=== PATIENT | female | born 1955 | race African-American/Black ===

== ENCOUNTER 2017-08-10 11:07 | Inpatient (IN) | payer BC ==
[2017-08-10 12:17] VITALS: BMI 17.0
--- NOTE | 2017-08-10 14:13 | HP ---
CIWA Score - CIWA Score Nausea/Vomitin-Mild Nausea/No Vomiting Muscle Tremors: 3 Anxiety: 4-Mod. Anxious/Guarded Agitation: 4-Moderately Restless Paroxysmal Sweats: No Perspiration Orientation: 0-Oriented Tacttile Disturbances: 2-Mild Itch/Numbness/Burn Auditory Disturbances: 0-None Visual Disturbances: 0-None Headache: 0-None Present CIWA-Ar Total Score: 14 Admission ROS BHS - HPI Chief Complaint: Withdrawal sx. Allergies/Adverse Reactions: Allergies Allergy/AdvReac Type Severity Reaction Status Date / Time atenolol Allergy Severe Hives Verified 08/10/17 12:16 History of Present Illness: 62 y/o woman with a long hx. of alcoholism is admitted for detox. Pt. has been in previous detox,denies significant sobriety. Pt. has hx. of Graves' disease treated with radioactive Iodine ablation,now takes synthroid. Exam Limitations: No Limitations - Ebola screening Have you traveled outside of the country in the last 21 days: No Have you had contact with anyone from an Ebola affected area: No Have you been sick,other than usual withdrawal symptoms: No Do you have a fever: No - Review of Systems Constitutional: Diaphoresis EENT: reports: No Symptoms Reported Respiratory: reports: Shortness of Breath (from smoking cigarettes & crack cocaine) GI: reports: Nausea, Abdominal cramping : reports: No Symptoms Reported Musculoskeletal: reports: Back Pain, Joint Pain, Muscle Pain Integumentary: reports: Sweating Neuro: reports: Tingling, Tremors Endocrine: reports: No Symptoms Reported Hematology: reports: No Symptoms Reported Psychiatric: reports: No Sypmtoms Reported Other Systems: Reviewed and Negative Patient History - Patient Medical History Hx Anemia: No Hx Asthma: No Hx Chronic Obstructive Pulmonary Disease (COPD): No (? early) Hx Cancer: No Hx Cardiac Disorders: No Hx Congestive Heart Failure: No Hx Hypertension: No Hx Hypercholesterolemia: No Hx Pacemaker: No HX Cerebrovascular Accident: No Hx Seizures: No Hx Dementia: Yes (alcohol related memory loss) Hx Diabetes: No Hx Gastrointestinal Disorders: No Hx Liver Disease: Yes (Cirrhosis) Hx Genitourinary Disorders: No Hx Sexually Transmitted Disorders: No Hx Renal Disease (ESRD): No Hx Thyroid Disease: Yes (Graves' disease now Hypothyroidism) Hx Human Immunodeficiency Virus (HIV): No Hx Hepatitis C: Yes (Needs treatment) Hx Depression: Yes Hx Suicide Attempt: No Hx Bipolar Disorder: No Hx Schizophrenia: No - Patient Surgical History Past Surgical History: Yes Hx Neurologic Surgery: No Hx Cataract Extraction: No Hx Cardiac Surgery: No Hx Lung Surgery: No Hx Breast Surgery: No Hx Breast Biopsy: No Hx Abdominal Surgery: Yes (umbilical hernia repair) Hx Appendectomy: No Hx Cholecystectomy: No Hx Genitourinary Surgery: No Hx Section: No Hx Orthopedic Surgery: Yes Other Surgical History: RT ANKLE SX Anesthesia Reaction: No - PPD History Previous Implant?: Yes Documented Results: Positive w/o proof PPD to be Administered?: No - Reproductive History Patient is a Female of Child Bearing Age (11 -55 yrs old): No Patient : No - Smoking Cessation Smoking history: Current every day smoker Have you smoked in the past 12 months: Yes Aproximately how many cigarettes per day: 10 Hx Chewing Tobacco Use: No Initiated information on smoking cessation: Yes 'Breaking Loose' booklet given: 08/10/17 - Substance & Tx. History Hx Alcohol Use: Yes Hx Substance Use: Yes Substance Use Type: Alcohol, Cocaine Hx Substance Use Treatment: Yes (can't remember when or where this yr.) - Substances Abused Alcohol Route: Oral Frequency: Daily Amount used: BEER- 1(6 pack) Age of first use: 17 Date of Last Use: 08/07/17 Cocaine Route: Smoking Frequency: Daily Amount used: 4 BAGS Age of first use: 26 Date of Last Use: 08/07/17 Family Disease History - Family Disease History Family Disease History: Diabetes: Grandparent, Heart Disease: Mother (HTN), CA: Father Admission Physical Exam S - Vital Signs Vital Signs: Vital Signs - 24 hr 08/10/17 12:05 Temperature 96.4 F L Pulse Rate 77 Respiratory 20 Rate Blood Pressure 121/80 - Physical General Appearance: Yes: Tremorous, Irritable, Sweating, Anxious HEENTM: Yes: Rhinorrhea, Other (rt. upper eyelid with lipoma-like mass) Respiratory: Yes: Chest Non-Tender, Lungs Clear, Normal Breath Sounds Neck: Yes: Supple Breast: Yes: Breast Exam Deferred Cardiology: Yes: Regular Rhythm, Regular Rate, S1, S2 Abdominal: Yes: Normal Bowel Sounds, Non Tender, Soft Genitourinary: Yes: Within Normal Limits Back: Yes: Within Normal Limits Musculoskeletal: Yes: Within Normal Limits Extremities: Yes: Tremors Neurological: Yes: Fully Oriented, Alert Integumentary: Yes: Diaphoresis Lymphatic: Yes: Within Normal Limits - Diagnostic (1) Alcohol dependence with uncomplicated withdrawal Current Visit: Yes Status: Acute (2) Cirrhosis of liver Current Visit: Yes Status: Acute Qualifiers: Hepatic cirrhosis type: alcoholic cirrhosis Ascites presence: without ascites Qualified Code(s): K70.30 - Alcoholic cirrhosis of liver without ascites (3) Cocaine dependence, uncomplicated Current Visit: Yes Status: Acute (4) Graves' disease Current Visit: Yes Status: Acute Cleared for Admission [facility] - Detox or Rehab [facility] Level of Care: Medically Managed Detox Regimen/Protocol: Librium [facility] Breath Alcohol Content Breath Alcohol Content: 0 Urine Pregancy Test - Result Urine Test Results: Negative- NO Line Present Urine Drug Screen - Results Drug Screen Negative: No Urine Drug Screen Results: NATHALY-Cocaine, BZO-Benzodiazepines
[2017-08-10] MEDS ORDERED: LOPERAMIDE HCL 2 MG CAPSULE PO PRN (14:25)
[2017-08-10] MEDS ORDERED: chlordiazePOXIDE HCL 25 MG CAPSULE PO PRN (14:25)
[2017-08-10] MEDS ORDERED: NICOTINE POLACRILEX 2 MG GUM BUC PRN (14:25)
[2017-08-10] MEDS ORDERED: chlordiazePOXIDE HCL 25 MG CAPSULE PO ONE (14:25)
[2017-08-10] MEDS ORDERED: hydrOXYzine PAMOATE 50 MG CAPSULE (FP) PO PRN (14:25)
[2017-08-10] MEDS ORDERED: diphenhydrAMINE HCL 50 MG CAPSULE PO PRN (14:25)
[2017-08-10] MEDS ORDERED: MAGNESIUM HYDROX 2400MG/30ML ORAL SUSPENSION 30 ML CUP PO PRN (14:25)
[2017-08-10] MEDS ORDERED: P-EPHED 60MG/TRIPROLIDI 2.5MG TABLET PO PRN (14:25)
[2017-08-10] MEDS ORDERED: MAGNESIUM CITRATE 300 ML BOTTLE PO PRN (14:25)
[2017-08-10] MEDS ORDERED: guaiFENesin/D-METHORPHAN HB 10 ML UNIT-DOSE CUPS PO PRN (14:25)
[2017-08-10] MEDS ORDERED: MENTHOL/PHENOL 1 EACH UD MM PRN (14:25)
[2017-08-10] MEDS ORDERED: MAG HYDROX/AL HYDROX/SIMETH 30 ML UNIT-DOSE CUP PO PRN (14:25)
[2017-08-10] MEDS: LEVOTHYROXINE NA 25 MCG TABLET (FP) PO SCH (14:51)
[2017-08-10] MEDS: IBUPROFEN 400 MG TABLET (FP) PO PRN (14:54)
[2017-08-10] MEDS: NICOTINE 21 MG/24 HOURS TOPICAL PATCH TD SCH (14:55)
[2017-08-10] MEDS: chlordiazePOXIDE HCL 25 MG CAPSULE PO SCH ×2 (17:48→22:20)
[2017-08-10 18:14] LABS: URINE APPEARANCE SLCLOUDY; URINE BILIRUBIN NEGATIVE (NEGATIVE); URINE BLOOD NEGATIVE (NEGATIVE); URINE COLOR LTYELLOW; URINE GLUCOSE (UA) NEGATIVE (NEGATIVE); URINE KETONE NEGATIVE (NEGATIVE); URINE NITRITE NEGATIVE (NEGATIVE); URINE PROTEIN NEGATIVE (NEGATIVE); URINE UROBILINOGEN NEGATIVE mg/dL (0.2-1.0)
[2017-08-10 18:26] LABS: URINE LEUK ESTERASE 3+ (NEGATIVE)
[2017-08-10 18:31] LABS: URINE MUCUS RARE; URINE RBC 27 /hpf (0-3); URINE WBC 41 /hpf (3-5)
[2017-08-10] MEDS: THIAMINE HCL 100 MG TABLET (FP) PO SCH (22:19)
[2017-08-11] MEDS: chlordiazePOXIDE HCL 25 MG CAPSULE PO SCH ×4 (06:18→22:21)
[2017-08-11] MEDS: LEVOTHYROXINE NA 25 MCG TABLET (FP) PO SCH (07:37)
--- NOTE | 2017-08-11 09:05 | CONSULT ---
[facility] Psychiatric Consult - Data Date of interview: 08/11/17 Admission source: [facility] Identifying data: This is 62 years old female with no psychiatric hospitalization history intoxicated with: Alcohol and Cocaine Substance Abuse History: Smoking Cessation. Smoking history: Current every day smoker. Have you smoked in the past 12 months: Yes. Aproximately how many cigarettes per day: 10. Hx Chewing Tobacco Use: No. Initiated information on smoking cessation: Yes. 'Breaking Loose' booklet given: 08/10/17. - Substance & Tx. History. Hx Alcohol Use: Yes. Hx Substance Use: Yes. Substance Use Type : Alcohol, Cocaine. Hx Substance Use Treatment: Yes (can't remember when or where this yr.). - Substances Abused. Alcohol. Route: Oral. Frequency: Daily. Amount used: BEER- 1(6 pack). Age of first use: 17. Date of Last Use: 08/07/17. Cocaine. Route: Smoking. Frequency: Daily. Amount used: 4 BAGS. Age of first use: 26. Date of Last Use: 08/07/17 Medical History: Liver Cirrhosis, Grave's Disease Psychiatric History: Patient reports no past psychiatric history Physical/Sexual Abuse/Trauma History: Denies Additional Comment: Observation. Detox Unit Care Protocol Mental Status Exam - Mental Status Exam Alert and Oriented to: Person Cognitive Function: Fair Patient Appearance: Unkempt Affect: Flat Patient Behavior: Sedated Speech Pattern: Delayed Voice Loudness: Mildly Soft/Quiet Thought Process: Circumstantial Thought Disorder: Being Controlled Hallucinations: Denies Suicidal Ideation: Denies Homicidal Ideation: Denies Insight/Judgement: Fair Sleep: Difficulty falling asleep Appetite: Weight loss Muscle strength/Tone: Mild Hypotonicity Gait/Station: Shuffling Additional Comments: Observation. Detox Unit Care Protocol Psychiatric Findings - Problem List ([place] 1, 2,3) (1) Alcohol dependence with uncomplicated withdrawal Current Visit: Yes Status: Acute (2) Cocaine dependence, uncomplicated Current Visit: Yes Status: Acute (3) Drug-induced mood disorder Current Visit: Yes Status: Suspected - Initial Treatment Plan Initial Treatment Plan: Observation. Detox Unit Care Protocol
[2017-08-11] MEDS: ACETAMINOPHEN 325 MG TABLET (FP) PO PRN (09:08)
[2017-08-11 10:17] LABS: MCH 30.1 pg (25.7-33.7); MCHC 32.5 g/dl (32.0-36.0); MEAN CELL VOLUME 92.5 fl (80-96); PLATELET COUNT 290 K/MM3 (134-434); RDW 15.8 % (11.6-15.6); WHITE BLOOD COUNT 5.4 K/mm3 (4.0-10.0)
[2017-08-11] MEDS: NICOTINE 21 MG/24 HOURS TOPICAL PATCH TD SCH (10:30)
[2017-08-11] MEDS: PRENATAL VITAMINS W/ FOLIC ACID TABLET (FP) PO SCH (10:30)
[2017-08-11 10:35] LABS: ALBUMIN 3.5 g/dl (3.4-5.0); ALK PHOS 52 U/L (45-117); ANION GAP 8 (8-16); BILIRUBIN,TOTAL 0.5 mg/dL (0.2-1.0); CALCIUM 9.3 mg/dL (8.5-10.1); CO2 25 mmol/L (21-32); GLUCOSE,RANDOM 81 mg/dL (74-106); SGOT/AST 42 U/L (15-37); SGPT/ALT 48 U/L (12-78); TOT PROT 7.6 g/dl (6.4-8.2)
--- NOTE | 2017-08-11 11:09 | PN ---
S CIWA - CIWA Score Nausea/Vomitin-Mild Nausea/No Vomiting Muscle Tremors: 4-Moderate,w/Arms Extend Anxiety: 4-Mod. Anxious/Guarded Agitation: 3 Paroxysmal Sweats: 3 Orientation: 0-Oriented Tacttile Disturbances: 1-Very Mild Itch/Numbness Auditory Disturbances: 0-None Visual Disturbances: 0-None Headache: 0-None Present CIWA-Ar Total Score: 16 BHS Progress Note (SOAP) Subjective: Anxiety,tremors,sweating,interrupted sleep,restless Objective: 08/11/17 11:07 Vital Signs - 8 hr 08/11/17 08/11/17 08/11/17 03:30 06:00 09:42 Temperature 97.2 F L 97.7 F Pulse Rate 57 L 76 Respiratory 18 16 16 Rate Blood Pressure 122/76 105/74 Laboratory Tests 08/10/17 08/11/17 08/11/17 15:30 07:00 07:00 WBC 5.4 RBC 3.54 L Hgb 10.6 L Hct 32.7 MCV 92.5 MCH 30.1 MCHC 32.5 RDW 15.8 H Plt Count 290 MPV 8.0 Sodium 138 Potassium 4.2 Chloride 105 Carbon Dioxide 25 Anion Gap 8 BUN 27 H Creatinine 1.0 Creat Clearance w eGFR 56.18 Random Glucose 81 Calcium 9.3 Total Bilirubin 0.5 AST 42 H ALT 48 Alkaline Phosphatase 52 Total Protein 7.6 Albumin 3.5 Urine Color Ltyellow Urine Appearance Slcloudy Urine pH 5.0 Ur Specific [place] 1.020 Urine Protein Negative Urine Glucose (UA) Negative Urine Ketones Negative Urine Blood Negative Urine Nitrite Negative Urine Bilirubin Negative Urine Urobilinogen Negative Ur Leukocyte Esterase 3+ H Urine RBC 27 Urine WBC 41 Ur Epithelial Cells Few Urine Mucus Rare labs noted, u/c&s & repeat u/a ordered. Assessment: 08/11/17 11:08 Withdrawal sx. Plan: Continue detox
[2017-08-11 20:02] LABS: URINE APPEARANCE CLEAR; URINE BILIRUBIN NEGATIVE (NEGATIVE); URINE BLOOD NEGATIVE (NEGATIVE); URINE COLOR LT. YELLOW; URINE GLUCOSE (UA) NEGATIVE (NEGATIVE); URINE KETONE NEGATIVE (NEGATIVE); URINE LEUK ESTERASE NEGATIVE (NEGATIVE); URINE NITRITE NEGATIVE (NEGATIVE); URINE PROTEIN NEGATIVE (NEGATIVE); URINE UROBILINOGEN 0.2 mg/dL (0.2-1.0)
[2017-08-11] MEDS: THIAMINE HCL 100 MG TABLET (FP) PO SCH (22:21)
[2017-08-11] MEDS: IBUPROFEN 400 MG TABLET (FP) PO PRN (22:22)
--- NOTE | 2017-08-11 23:18 | EKG ---
Test Reason : Blood Pressure : / mmHG Vent. Rate : 064 BPM Atrial Rate : 064 BPM P-R Int : 160 ms QRS Dur : 084 ms QT Int : 448 ms P-R-T Axes : 060 -55 036 degrees QTc Int : 462 ms NORMAL SINUS RHYTHM LEFT AXIS DEVIATION NONSPECIFIC T WAVE ABNORMALITY ABNORMAL ECG NO PREVIOUS ECGS AVAILABLE Confirmed by HERNANDEZ VALVERDE MD ([id number]) on 08/11/2017 11:17:44 PM Referred By: Confirmed By:HERNANDEZ VALVERDE MD
[2017-08-12] MEDS: chlordiazePOXIDE HCL 25 MG CAPSULE PO SCH ×2 (06:05→10:20)
[2017-08-12] MEDS: LEVOTHYROXINE NA 25 MCG TABLET (FP) PO SCH (07:17)
--- NOTE | 2017-08-12 08:47 | PN ---
S CIWA - CIWA Score Nausea/Vomitin Muscle Tremors: 4-Moderate,w/Arms Extend Agitation: 4-Moderately Restless Paroxysmal Sweats: 3 Orientation: 0-Oriented Tacttile Disturbances: 1-Very Mild Itch/Numbness Auditory Disturbances: 0-None Visual Disturbances: 0-None Headache: 1-Very Mild BHS Progress Note (SOAP) Subjective: nausea, sweats, interrupted sleep, anxiety, tremors, cachectic, PPD+ cxr done Objective: 08/12/17 08:46 Vital Signs - 8 hr 08/12/17 08/12/17 03:30 06:36 Temperature 96.8 F L Pulse Rate 62 Respiratory 18 18 Rate Blood Pressure 124/87 Laboratory Tests 08/10/17 08/11/17 08/11/17 15:30 06:00 07:00 WBC 5.4 RBC 3.54 L Hgb 10.6 L Hct 32.7 MCV 92.5 MCH 30.1 MCHC 32.5 RDW 15.8 H Plt Count 290 MPV 8.0 Sodium Potassium Chloride Carbon Dioxide Anion Gap BUN Creatinine Creat Clearance w eGFR Random Glucose Calcium Total Bilirubin AST ALT Alkaline Phosphatase Total Protein Albumin Urine Color Ltyellow Urine Appearance Slcloudy Urine pH 5.0 Ur Specific [place] 1.020 Urine Protein Negative Urine Glucose (UA) Negative Urine Ketones Negative Urine Blood Negative Urine Nitrite Negative Urine Bilirubin Negative Urine Urobilinogen Negative Ur Leukocyte Esterase 3+ H Urine RBC 27 Urine WBC 41 Ur Epithelial Cells Few Urine Mucus Rare RPR Titer Nonreactive 08/11/17 08/11/17 07:00 15:39 WBC RBC Hgb Hct MCV MCH MCHC RDW Plt Count MPV Sodium 138 Potassium 4.2 Chloride 105 Carbon Dioxide 25 Anion Gap 8 BUN 27 H Creatinine 1.0 Creat Clearance w eGFR 56.18 Random Glucose 81 Calcium 9.3 Total Bilirubin 0.5 AST 42 H ALT 48 Alkaline Phosphatase 52 Total Protein 7.6 Albumin 3.5 Urine Color Lt. yellow Urine Appearance Clear Urine pH 6.0 Ur Specific [place] 1.020 Urine Protein Negative Urine Glucose (UA) Negative Urine Ketones Negative Urine Blood Negative Urine Nitrite Negative Urine Bilirubin Negative Urine Urobilinogen 0.2 Ur Leukocyte Esterase Urine RBC Urine WBC Ur Epithelial Cells Urine Mucus RPR Titer Assessment: 08/12/17 08:47 withdrwal sx, CXR neg, anemia from malnutirtion 2/2 substance use Plan: cont ddtox, fluids, iron,
[2017-08-12] MEDS: PRENATAL VITAMINS W/ FOLIC ACID TABLET (FP) PO SCH (10:20)
[2017-08-12] MEDS: NICOTINE 21 MG/24 HOURS TOPICAL PATCH TD SCH (10:21)
[2017-08-12] MEDS: IBUPROFEN 400 MG TABLET (FP) PO PRN ×2 (10:23→22:02)
[2017-08-12] MEDS ORDERED: FERROUS SO4 300 MG/5 ML ORAL SOLN UNIT DOSE CUPS PO SCH (12:00)
[2017-08-12] MEDS: FERROUS SO4 325 MG TABLET (FP) PO SCH ×2 (12:43→18:25)
[2017-08-12] MEDS: chlordiazePOXIDE 5 MG CAPSULE PO SCH ×3 (17:55→22:05)
[2017-08-12] MEDS: MICONAZOLE NITRATE 100 MG SUPP SUPP.VAG PV SCH (22:00)
[2017-08-12] MEDS: THIAMINE HCL 100 MG TABLET (FP) PO SCH (22:34)
[2017-08-12] MEDS: DOCUSATE SODIUM 100 MG CAPSULE (FP) PO SCH (22:34)
[2017-08-13] MEDS: chlordiazePOXIDE 5 MG CAPSULE PO SCH ×2 (05:50→10:27)
[2017-08-13] MEDS: LEVOTHYROXINE NA 25 MCG TABLET (FP) PO SCH (07:07)
[2017-08-13] MEDS: FERROUS SO4 325 MG TABLET (FP) PO SCH ×3 (08:02→18:15)
[2017-08-13] MEDS: IBUPROFEN 400 MG TABLET (FP) PO PRN (09:08)
[2017-08-13] MEDS: PRENATAL VITAMINS W/ FOLIC ACID TABLET (FP) PO SCH (10:27)
[2017-08-13] MEDS: NICOTINE 21 MG/24 HOURS TOPICAL PATCH TD SCH (11:39)
[2017-08-13] MEDS: chlordiazePOXIDE HCL 10 MG CAPSULE PO SCH ×2 (17:55→22:16)
[2017-08-13] MEDS: ACETAMINOPHEN 325 MG TABLET (FP) PO PRN (18:39)
[2017-08-13] MEDS: MICONAZOLE NITRATE 100 MG SUPP SUPP.VAG PV SCH (22:13)
[2017-08-13] MEDS: DOCUSATE SODIUM 100 MG CAPSULE (FP) PO SCH (22:13)
[2017-08-13] MEDS: THIAMINE HCL 100 MG TABLET (FP) PO SCH (22:38)
[2017-08-14 06:43] VITALS: BP 100/68; PULSE 60; TEMP 96.8
[2017-08-14] MEDS: FERROUS SO4 325 MG TABLET (FP) PO SCH (07:56)
[2017-08-14] MEDS: chlordiazePOXIDE HCL 10 MG CAPSULE PO SCH (07:56)
[2017-08-14] MEDS: LEVOTHYROXINE NA 25 MCG TABLET (FP) PO SCH (07:56)
--- NOTE | 2017-08-14 08:38 | DS ---
[facility] Detox Discharge Summary Admission Date: 08/10/17 Discharge Date: 08/14/17 - History Present History: Alcohol Dependence, Cocaine Dependence Pertinent Past History: Gravs disease, cirrhosis, anxiety, depression, insomnia - Physical Exam Results Vital Signs: Vital Signs Temperature 96.8 F L 08/14/17 06:43 Pulse Rate 60 08/14/17 06:43 Respiratory Rate 16 08/14/17 06:43 Blood Pressure 100/68 08/14/17 06:43 O2 Sat by Pulse Oximetry (%) Laboratory Tests 08/10/17 08/11/17 08/11/17 15:30 06:00 07:00 WBC 5.4 RBC 3.54 L Hgb 10.6 L Hct 32.7 MCV 92.5 MCH 30.1 MCHC 32.5 RDW 15.8 H Plt Count 290 MPV 8.0 Sodium Potassium Chloride Carbon Dioxide Anion Gap BUN Creatinine Creat Clearance w eGFR Random Glucose Calcium Total Bilirubin AST ALT Alkaline Phosphatase Total Protein Albumin Urine Color Ltyellow Urine Appearance Slcloudy Urine pH 5.0 Ur Specific [place] 1.020 Urine Protein Negative Urine Glucose (UA) Negative Urine Ketones Negative Urine Blood Negative Urine Nitrite Negative Urine Bilirubin Negative Urine Urobilinogen Negative Ur Leukocyte Esterase 3+ H Urine RBC 27 Urine WBC 41 Ur Epithelial Cells Few Urine Mucus Rare RPR Titer Nonreactive 08/11/17 08/11/17 07:00 15:39 WBC RBC Hgb Hct MCV MCH MCHC RDW Plt Count MPV Sodium 138 Potassium 4.2 Chloride 105 Carbon Dioxide 25 Anion Gap 8 BUN 27 H Creatinine 1.0 Creat Clearance w eGFR 56.18 Random Glucose 81 Calcium 9.3 Total Bilirubin 0.5 AST 42 H ALT 48 Alkaline Phosphatase 52 Total Protein 7.6 Albumin 3.5 Urine Color Lt. yellow Urine Appearance Clear Urine pH 6.0 Ur Specific [place] 1.020 Urine Protein Negative Urine Glucose (UA) Negative Urine Ketones Negative Urine Blood Negative Urine Nitrite Negative Urine Bilirubin Negative Urine Urobilinogen 0.2 Ur Leukocyte Esterase Urine RBC Urine WBC Ur Epithelial Cells Urine Mucus RPR Titer Pertinent Admission Physical Exam Findings: withdrawal sx - Treatment Hospital Course: Detox Protocol Followed, Detoxed Safely, Responded well, Discharged Condition Good, Rehab Referral Accepted Patient has Accepted a Rehab Referral to: Yes - Medication Discharge Medications: Ambulatory Orders Levothyroxine [Synthroid -] 25 mcg PO DAILY #30 tab 08/14/17 - Diagnosis (1) Alcohol dependence with uncomplicated withdrawal Current Visit: Yes Status: Acute (2) Cirrhosis of liver Current Visit: Yes Status: Acute Qualifiers: Hepatic cirrhosis type: alcoholic cirrhosis Ascites presence: without ascites Qualified Code(s): K70.30 - Alcoholic cirrhosis of liver without ascites (3) Cocaine dependence, uncomplicated Current Visit: Yes Status: Acute (4) Graves' disease Current Visit: Yes Status: Acute (5) Drug-induced mood disorder Current Visit: Yes Status: Suspected (6) Anemia Current Visit: Yes Status: Acute - AMA Did Patient Leave Against Medical Advice: No
--- NOTE | 2017-08-14 08:44 | PN ---
S Progress Note (SOAP) Subjective: patient seen on 08/13 rounds note written 08/14: nausea, sweats, interrupted sleep, anxiety, tremors Objective: 08/14/17 08:43 Vital Signs - 24 hr 08/13/17 08/13/17 08/13/17 10:00 14:08 18:11 Temperature 97.5 F L 98.1 F 97.1 F L Pulse Rate 68 78 96 H Respiratory 18 18 20 Rate Blood Pressure 115/91 113/88 115/87 08/13/17 08/14/17 08/14/17 23:38 00:30 03:30 Temperature 98.6 F Pulse Rate 96 H Respiratory 18 18 18 Rate Blood Pressure 106/89 08/14/17 06:43 Temperature 96.8 F L Pulse Rate 60 Respiratory 16 Rate Blood Pressure 100/68 Laboratory Tests 08/10/17 08/11/17 08/11/17 15:30 06:00 07:00 WBC 5.4 RBC 3.54 L Hgb 10.6 L Hct 32.7 MCV 92.5 MCH 30.1 MCHC 32.5 RDW 15.8 H Plt Count 290 MPV 8.0 Sodium Potassium Chloride Carbon Dioxide Anion Gap BUN Creatinine Creat Clearance w eGFR Random Glucose Calcium Total Bilirubin AST ALT Alkaline Phosphatase Total Protein Albumin Urine Color Ltyellow Urine Appearance Slcloudy Urine pH 5.0 Ur Specific [place] 1.020 Urine Protein Negative Urine Glucose (UA) Negative Urine Ketones Negative Urine Blood Negative Urine Nitrite Negative Urine Bilirubin Negative Urine Urobilinogen Negative Ur Leukocyte Esterase 3+ H Urine RBC 27 Urine WBC 41 Ur Epithelial Cells Few Urine Mucus Rare RPR Titer Nonreactive 08/11/17 08/11/17 07:00 15:39 WBC RBC Hgb Hct MCV MCH MCHC RDW Plt Count MPV Sodium 138 Potassium 4.2 Chloride 105 Carbon Dioxide 25 Anion Gap 8 BUN 27 H Creatinine 1.0 Creat Clearance w eGFR 56.18 Random Glucose 81 Calcium 9.3 Total Bilirubin 0.5 AST 42 H ALT 48 Alkaline Phosphatase 52 Total Protein 7.6 Albumin 3.5 Urine Color Lt. yellow Urine Appearance Clear Urine pH 6.0 Ur Specific [place] 1.020 Urine Protein Negative Urine Glucose (UA) Negative Urine Ketones Negative Urine Blood Negative Urine Nitrite Negative Urine Bilirubin Negative Urine Urobilinogen 0.2 Ur Leukocyte Esterase Urine RBC Urine WBC Ur Epithelial Cells Urine Mucus RPR Titer Assessment: 08/14/17 08:43 withdrawals, anemia Plan: cont detox, fluids, encourage ambulation
== END 2017-08-14 09:34 | disposition home or self-care (01) | DRG 774 ==
LOC: YASAS 11:07 → Y6N 12:41
PROVIDERS: ADMIT Internal Medicine; ATTEND Internal Medicine Addiction Medicine
PROC: HZ2ZZZZ Detoxification Services for Substance Abuse Treatment (ICD-10-PCS; principal; 2017-08-10)
DX: F10.230 Alcohol dependence with withdrawal, uncomplicated (principal); F14.20 Cocaine dependence, uncomplicated; F19.24 Other psychoactive substance dependence with psychoactive substance-induced mood disorder; K70.30 Alcoholic cirrhosis of liver without ascites; D64.9 Anemia, unspecified; E05.00 Thyrotoxicosis with diffuse goiter without thyrotoxic crisis or storm
CPT/HCPCS: 36415; 71020-TC; 80053; 81003; 81015; 85027; 86593; 87086; 93005; 93010

== ENCOUNTER 2017-09-10 17:10 | Inpatient (IN) | payer BC ==
[2017-09-10 19:18] VITALS: BMI 18.2
--- NOTE | 2017-09-10 20:49 | HP ---
Admission ROS S - [facility] Chief Complaint: SEEKING REHAB S/P DETOX TO MAINTAIN SOBRIETY Allergies/Adverse Reactions: Allergies Allergy/AdvReac Type Severity Reaction Status Date / Time atenolol Allergy Severe Hives Verified 09/10/17 20:18 History of Present Illness: 62 Y.O. FEMALE WITH LONG HX/O ALCOHOLISM AND COCAINE DEPENDENCE ADMITTED TO REHAB. CLIENT WAS REFERRED BY [facility] AFTER COMPLETING DETOX THERE AND BEING DC TODAY. SHE IS KNOWN TO [facility]. REPORTS LONGEST CLEAN TIME 4YEARS. DETOX: 2X REHAB: 2X Exam Limitations: No Limitations - Ebola screening Have you traveled outside of the country in the last 21 days: No Have you had contact with anyone from an Ebola affected area: No Have you been sick,other than usual withdrawal symptoms: No Do you have a fever: No - Review of Systems Constitutional: Malaise EENT: reports: Dental Problems (EDENTULOUS) Respiratory: reports: No Symptoms reported Cardiac: reports: No Symptoms Reported GI: reports: No Symptoms Reported : reports: No Symptoms Reported Musculoskeletal: reports: Back Pain Integumentary: reports: No Symptoms Reported Neuro: reports: No Symptoms reported Endocrine: reports: No Symptoms Reported Hematology: reports: No Symptoms Reported Psychiatric: reports: Anxious, Depressed Other Systems: Reviewed and Negative Patient History - Patient Medical History Hx Anemia: No Hx Asthma: No Hx Chronic Obstructive Pulmonary Disease (COPD): No Hx Cancer: No Hx Cardiac Disorders: No Hx Congestive Heart Failure: No Hx Hypertension: No Hx Hypercholesterolemia: No Hx Pacemaker: No HX Cerebrovascular Accident: No Hx Seizures: No Hx Dementia: Yes (alcohol related memory loss) Hx Diabetes: No Hx Gastrointestinal Disorders: No Hx Liver Disease: No Hx Genitourinary Disorders: No Hx Sexually Transmitted Disorders: No Hx Renal Disease (ESRD): No Hx Thyroid Disease: Yes (Graves' disease now Hypothyroidism) Hx Human Immunodeficiency Virus (HIV): No Hx Hepatitis C: Yes (Needs treatment) Hx Depression: Yes Hx Suicide Attempt: No Hx Bipolar Disorder: No Hx Schizophrenia: No Other Medical History: DENIES - Patient Surgical History Past Surgical History: Yes Hx Neurologic Surgery: No Hx Cataract Extraction: No Hx Cardiac Surgery: No Hx Lung Surgery: No Hx Breast Surgery: No Hx Breast Biopsy: No Hx Abdominal Surgery: Yes (umbilical hernia repair) Hx Appendectomy: No Hx Cholecystectomy: No Hx Genitourinary Surgery: No Hx Section: No Hx Orthopedic Surgery: Yes Other Surgical History: RT ANKLE SX Anesthesia Reaction: No - PPD History Previous Implant?: Yes Documented Results: Positive w/o proof Implanted On Prior R Admission?: No Results: CXR NEG 08/2017 PPD to be Administered?: No - Reproductive History Patient is a Female of Child Bearing Age (11 -55 yrs old): No Patient : ([facility] [place]) - Smoking Cessation Smoking history: Current every day smoker Have you smoked in the past 12 months: Yes Aproximately how many cigarettes per day: 10 Hx Chewing Tobacco Use: No Initiated information on smoking cessation: Yes 'Breaking Loose' booklet given: 09/10/17 - Substance & Tx. History Hx Alcohol Use: Yes Hx Substance Use: Yes Substance Use Type: Cocaine Hx Substance Use Treatment: Yes ([facility]) - Substances Abused BEER Route: Oral Frequency: Daily Amount used: 3-16OZ Age of first use: 18 Date of Last Use: 08/16/17 COCAINE Route: Smoking Frequency: Daily Amount used: $50 Age of first use: 35 Date of Last Use: 08/16/17 Family Disease History - Family Disease History Family Disease History: Diabetes: Grandparent, Heart Disease: Mother (HTN), CA: Father Admission Physical Exam BHS - Vital Signs Vital Signs: Vital Signs - 24 hr 09/10/17 19:14 Temperature 120 F H Pulse Rate 70 Respiratory 18 Rate Blood Pressure 111/82 - Physical General Appearance: Yes: No Apparent Distress, Appropriately Dressed HEENTM: Yes: EOMI, Normocephalic, Normal Voice, VANIA, Pharynx Normal, Other ( DENTURES UPPER) Respiratory: Yes: Chest Non-Tender, Lungs Clear, Normal Breath Sounds, No Respiratory Distress, No Accessory Muscle Use Neck: Yes: No masses,lesions,Nodules, Supple, Trachea in good position Breast: Yes: Breast Exam Deferred Cardiology: Yes: Regular Rhythm, Regular Rate, S1, S2 Abdominal: Yes: Normal Bowel Sounds, Non Tender, Flat, Soft Genitourinary: Yes: Within Normal Limits Back: Yes: Normal Inspection Musculoskeletal: Yes: full range of Motion, Other (UNSTEADY GAIT) Extremities: Yes: Normal Capillary Refill, Normal Range of Motion, Non-Tender Neurological: Yes: Fully Oriented, Alert, Motor Strength 5/5 Integumentary: Yes: Normal Color, Dry, Warm Lymphatic: Yes: Within Normal Limits - Diagnostic (1) Cocaine dependence, uncomplicated Current Visit: Yes Status: Chronic (2) Graves' disease Current Visit: Yes Status: Chronic (3) Uncomplicated alcohol dependence Current Visit: Yes Status: Chronic (4) Nicotine dependence Current Visit: Yes Status: Chronic Qualifiers: Nicotine product type: cigarettes Substance use status: uncomplicated Qualified Code(s): F17.210 - Nicotine dependence, cigarettes, uncomplicated; F17.210 - Nicotine dependence, cigarettes, uncomplicated Cleared for Admission BHS - Detox or Rehab Detox Regimen/Protocol: Not Applicable Claeared for Rehab Admission: Yes S Breath Alcohol Content Breath Alcohol Content: 0 Urine Pregancy Test - Result Urine Test Results: Negative- NO Line Present Urine Drug Screen - Results Drug Screen Negative: No Urine Drug Screen Results: BZO-Benzodiazepines Inpatient Rehab Admission - Initial Determination Are CD services needed?: Yes Free of communicable disease: Yes Not in need of hospitalization: Yes - Rehab Admission Criteria Previous failed treatment: Yes Poor recovery environment: Yes Comorbidities: Yes Lacks judgement: Yes Patient is meeting Inpatient Rehab admission criteria:: Yes
[2017-09-10] MEDS ORDERED: guaiFENesin/D-METHORPHAN HB 10 ML UNIT-DOSE CUPS PO PRN (21:00)
[2017-09-10] MEDS ORDERED: NICOTINE POLACRILEX 2 MG GUM BC PRN (21:00)
[2017-09-10] MEDS ORDERED: MENTHOL/PHENOL 1 EACH UD MM PRN (21:00)
[2017-09-10] MEDS ORDERED: MAGNESIUM CITRATE 300 ML BOTTLE PO PRN (21:00)
[2017-09-10] MEDS ORDERED: MAGNESIUM HYDROX 2400MG/30ML ORAL SUSPENSION 30 ML CUP PO PRN (21:00)
[2017-09-10] MEDS ORDERED: LOPERAMIDE HCL 2 MG CAPSULE PO PRN (21:00)
[2017-09-10] MEDS ORDERED: MAG HYDROX/AL HYDROX/SIMETH 30 ML UNIT-DOSE CUP PO PRN (21:00)
[2017-09-10] MEDS ORDERED: P-EPHED 60MG/TRIPROLIDI 2.5MG TABLET PO PRN (21:00)
[2017-09-10] MEDS ORDERED: ACETAMINOPHEN 325 MG TABLET (FP) PO PRN (21:00)
[2017-09-10] MEDS: NICOTINE 14 MG/24 HOURS TOPICAL PATCH TD SCH (22:13)
[2017-09-10] MEDS: IBUPROFEN 400 MG TABLET (FP) PO PRN (22:14)
[2017-09-10] MEDS: THIAMINE HCL 100 MG TABLET (FP) PO SCH (22:14)
[2017-09-10] MEDS: diphenhydrAMINE HCL 50 MG CAPSULE PO PRN (22:14)
[2017-09-10 23:47] LABS: URINE APPEARANCE CLOUDY; URINE BILIRUBIN NEGATIVE (NEGATIVE); URINE BLOOD 1+ (NEGATIVE); URINE COLOR YELLOW; URINE GLUCOSE (UA) NEGATIVE (NEGATIVE); URINE KETONE NEGATIVE (NEGATIVE); URINE NITRITE NEGATIVE (NEGATIVE); URINE PROTEIN NEGATIVE (NEGATIVE); URINE UROBILINOGEN NEGATIVE mg/dL (0.2-1.0)
[2017-09-10 23:52] LABS: URINE MUCUS RARE; URINE RBC 59 /hpf (0-3); URINE WBC 87 /hpf (3-5)
[2017-09-11] MEDS: LEVOTHYROXINE NA 100 MCG TABLET (FP) PO SCH (06:28)
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
[2017-09-11 09:44] LABS: URINE LEUK ESTERASE 2+ (NEGATIVE)
[2017-09-11] MEDS: PRENATAL VITAMINS W/ FOLIC ACID TABLET (FP) PO SCH (10:10)
[2017-09-11] MEDS: NICOTINE 14 MG/24 HOURS TOPICAL PATCH TD SCH (10:10)
--- NOTE | 2017-09-11 12:03 | EKG ---
Test Reason : Blood Pressure : / mmHG Vent. Rate : 059 BPM Atrial Rate : 059 BPM P-R Int : 170 ms QRS Dur : 094 ms QT Int : 444 ms P-R-T Axes : 050 -29 051 degrees QTc Int : 439 ms SINUS BRADYCARDIA OTHERWISE NORMAL ECG WHEN COMPARED WITH ECG OF 10-AUG-2017 13:58, NONSPECIFIC T WAVE ABNORMALITY NO LONGER EVIDENT IN INFERIOR LEADS Confirmed by NGERA PALOMO, DO ([id number]) on 09/11/2017 12:02:51 PM Referred By: ISRAEL MELLO Confirmed By:DO OMER MD
[2017-09-11] MEDS: IBUPROFEN 400 MG TABLET (FP) PO PRN ×2 (13:25→20:33)
[2017-09-11 14:02] LABS: MCH 30.1 pg (25.7-33.7); MCHC 32.4 g/dl (32.0-36.0); MEAN PLT VOLUME 7.3 fl (7.5-11.1); PLATELET COUNT 325 K/MM3 (134-434); RDW 14.9 % (11.6-15.6); WHITE BLOOD COUNT 5.6 K/mm3 (4.0-10.0)
[2017-09-11 14:10] LABS: ALBUMIN 4.3 g/dl (3.4-5.0); ALK PHOS 71 U/L (45-117); ANION GAP 8 (8-16); BILIRUBIN,TOTAL 0.3 mg/dL (0.2-1.0); CALCIUM 9.2 mg/dL (8.5-10.1); CO2 28 mmol/L (21-32); CREATININE 0.8 mg/dL (0.55-1.02); GLUCOSE,RANDOM 134 mg/dL (74-106); SGOT/AST 30 U/L (15-37); SGPT/ALT 43 U/L (12-78); TOT PROT 8.8 g/dl (6.4-8.2)
[2017-09-11] MEDS: SERTRALINE HCL 50 MG TABLET (FP) PO SCH (15:45)
[2017-09-11] MEDS: THIAMINE HCL 100 MG TABLET (FP) PO SCH (21:15)
[2017-09-11] MEDS: traZODone HCL 100 MG TABLET (FP) PO SCH (21:15)
[2017-09-12] MEDS: LEVOTHYROXINE NA 100 MCG TABLET (FP) PO SCH (06:33)
[2017-09-12] MEDS: IBUPROFEN 400 MG TABLET (FP) PO PRN (08:32)
[2017-09-12] MEDS: SERTRALINE HCL 50 MG TABLET (FP) PO SCH (09:53)
[2017-09-12] MEDS: PRENATAL VITAMINS W/ FOLIC ACID TABLET (FP) PO SCH (09:53)
[2017-09-12] MEDS: NICOTINE 14 MG/24 HOURS TOPICAL PATCH TD SCH (09:54)
[2017-09-12] MEDS: diphenhydrAMINE HCL 50 MG CAPSULE PO PRN (21:07)
[2017-09-12] MEDS: THIAMINE HCL 100 MG TABLET (FP) PO SCH (21:07)
[2017-09-12] MEDS: traZODone HCL 100 MG TABLET (FP) PO SCH (21:07)
[2017-09-13] MEDS: LEVOTHYROXINE NA 100 MCG TABLET (FP) PO SCH (07:01)
[2017-09-13] MEDS: SERTRALINE HCL 50 MG TABLET (FP) PO SCH (09:47)
[2017-09-13] MEDS: PRENATAL VITAMINS W/ FOLIC ACID TABLET (FP) PO SCH (09:47)
[2017-09-13] MEDS: IBUPROFEN 400 MG TABLET (FP) PO PRN (09:48)
[2017-09-13] MEDS: NICOTINE 14 MG/24 HOURS TOPICAL PATCH TD SCH (09:49)
[2017-09-13] MEDS: THIAMINE HCL 100 MG TABLET (FP) PO SCH (21:36)
[2017-09-13] MEDS: diphenhydrAMINE HCL 50 MG CAPSULE PO PRN (21:36)
[2017-09-13] MEDS: traZODone HCL 100 MG TABLET (FP) PO SCH (21:36)
[2017-09-14] MEDS: LEVOTHYROXINE NA 100 MCG TABLET (FP) PO SCH (06:20)
[2017-09-14] MEDS: SERTRALINE HCL 50 MG TABLET (FP) PO SCH (10:03)
[2017-09-14] MEDS: NICOTINE 14 MG/24 HOURS TOPICAL PATCH TD SCH (10:03)
[2017-09-14] MEDS: PRENATAL VITAMINS W/ FOLIC ACID TABLET (FP) PO SCH (10:03)
[2017-09-14] MEDS: THIAMINE HCL 100 MG TABLET (FP) PO SCH (21:55)
[2017-09-14] MEDS: IBUPROFEN 400 MG TABLET (FP) PO PRN (21:55)
[2017-09-14] MEDS: traZODone HCL 100 MG TABLET (FP) PO SCH (21:56)
[2017-09-14] MEDS: diphenhydrAMINE HCL 50 MG CAPSULE PO PRN (21:56)
[2017-09-15] MEDS: LEVOTHYROXINE NA 100 MCG TABLET (FP) PO SCH (06:19)
[2017-09-15] MEDS: NICOTINE 14 MG/24 HOURS TOPICAL PATCH TD SCH (09:56)
[2017-09-15] MEDS: PRENATAL VITAMINS W/ FOLIC ACID TABLET (FP) PO SCH (09:56)
[2017-09-15] MEDS: SERTRALINE HCL 50 MG TABLET (FP) PO SCH (09:56)
[2017-09-15] MEDS: IBUPROFEN 400 MG TABLET (FP) PO PRN ×2 (14:41→21:42)
[2017-09-15] MEDS: NAPHAZOLINE/PHENIRAMINE OPHTHALMIC 15 ML BOTTLE OU PRN (21:41)
[2017-09-15] MEDS: THIAMINE HCL 100 MG TABLET (FP) PO SCH (21:42)
[2017-09-15] MEDS: traZODone HCL 100 MG TABLET (FP) PO SCH (21:42)
[2017-09-16] MEDS: LEVOTHYROXINE NA 100 MCG TABLET (FP) PO SCH (06:13)
[2017-09-16] MEDS: IBUPROFEN 400 MG TABLET (FP) PO PRN (08:56)
[2017-09-16 09:46] LABS: URINE APPEARANCE SLCLOUDY; URINE BILIRUBIN NEGATIVE (NEGATIVE); URINE BLOOD NEGATIVE (NEGATIVE); URINE COLOR LTYELLOW; URINE GLUCOSE (UA) NEGATIVE (NEGATIVE); URINE KETONE NEGATIVE (NEGATIVE); URINE NITRITE NEGATIVE (NEGATIVE); URINE PROTEIN NEGATIVE (NEGATIVE); URINE UROBILINOGEN NEGATIVE mg/dL (0.2-1.0)
[2017-09-16] MEDS: PRENATAL VITAMINS W/ FOLIC ACID TABLET (FP) PO SCH (10:10)
[2017-09-16] MEDS: SERTRALINE HCL 50 MG TABLET (FP) PO SCH (10:11)
[2017-09-16] MEDS: NICOTINE 14 MG/24 HOURS TOPICAL PATCH TD SCH (10:11)
[2017-09-16 12:33] LABS: ALBUMIN 3.7 g/dl (3.4-5.0); ANION GAP 4 (8-16); CALCIUM 9.7 mg/dL (8.5-10.1); CO2 32 mmol/L (21-32); GLUCOSE,RANDOM 93 mg/dL (74-106); SGOT/AST 27 U/L (15-37); SGPT/ALT 41 U/L (12-78)
[2017-09-16 12:47] LABS: ALK PHOS 58 U/L (45-117); BILIRUBIN,TOTAL 0.3 mg/dL (0.2-1.0); CREATININE 0.8 mg/dL (0.55-1.02); THYROID STIMULATING HORMONE 6.24 uIU/ml (0.358-3.74); TOT PROT 7.6 g/dl (6.4-8.2)
[2017-09-16 17:44] LABS: URINE LEUK ESTERASE 3+ (NEGATIVE)
[2017-09-16 20:59] LABS: URINE WBC 30-40 (3-5)
[2017-09-16 21:00] LABS: URINE BACTERIA MANY /hpf (NEGATIVE)
[2017-09-16] MEDS: traZODone HCL 100 MG TABLET (FP) PO SCH (21:29)
[2017-09-16] MEDS: THIAMINE HCL 100 MG TABLET (FP) PO SCH (21:29)
[2017-09-17] MEDS: LEVOTHYROXINE NA 100 MCG TABLET (FP) PO SCH (06:21)
[2017-09-17] MEDS: SERTRALINE HCL 50 MG TABLET (FP) PO SCH (10:20)
[2017-09-17] MEDS: PRENATAL VITAMINS W/ FOLIC ACID TABLET (FP) PO SCH (10:20)
[2017-09-17] MEDS: NICOTINE 14 MG/24 HOURS TOPICAL PATCH TD SCH (10:21)
[2017-09-17] MEDS: traZODone HCL 100 MG TABLET (FP) PO SCH (21:26)
[2017-09-17] MEDS: THIAMINE HCL 100 MG TABLET (FP) PO SCH (21:26)
[2017-09-17] MEDS: DOCUSATE SODIUM 100 MG CAPSULE (FP) PO SCH (21:27)
[2017-09-17] MEDS: hydrOXYzine PAMOATE 50 MG CAPSULE (FP) PO PRN (21:29)
[2017-09-18] MEDS: LEVOTHYROXINE NA 112 MCG TABLET (FP) PO SCH (06:40)
[2017-09-18] MEDS: SERTRALINE HCL 50 MG TABLET (FP) PO SCH (10:37)
[2017-09-18] MEDS: PRENATAL VITAMINS W/ FOLIC ACID TABLET (FP) PO SCH (10:38)
[2017-09-18] MEDS: NICOTINE 14 MG/24 HOURS TOPICAL PATCH TD SCH (10:38)
[2017-09-18] MEDS: IBUPROFEN 400 MG TABLET (FP) PO PRN (19:23)
[2017-09-18] MEDS: traZODone HCL 100 MG TABLET (FP) PO SCH (21:30)
[2017-09-18] MEDS: DOCUSATE SODIUM 100 MG CAPSULE (FP) PO SCH (21:30)
[2017-09-18] MEDS: THIAMINE HCL 100 MG TABLET (FP) PO SCH (21:30)
[2017-09-18] MEDS: hydrOXYzine PAMOATE 50 MG CAPSULE (FP) PO PRN (21:32)
[2017-09-19] MEDS: LEVOTHYROXINE NA 112 MCG TABLET (FP) PO SCH (06:27)
[2017-09-19] MEDS: SERTRALINE HCL 50 MG TABLET (FP) PO SCH (10:32)
[2017-09-19] MEDS: PRENATAL VITAMINS W/ FOLIC ACID TABLET (FP) PO SCH (10:32)
[2017-09-19] MEDS: NICOTINE 14 MG/24 HOURS TOPICAL PATCH TD SCH (10:32)
[2017-09-19] MEDS: IBUPROFEN 400 MG TABLET (FP) PO PRN (19:56)
[2017-09-19] MEDS: THIAMINE HCL 100 MG TABLET (FP) PO SCH (21:20)
[2017-09-19] MEDS: hydrOXYzine PAMOATE 50 MG CAPSULE (FP) PO PRN (21:20)
[2017-09-19] MEDS: NAPHAZOLINE/PHENIRAMINE OPHTHALMIC 15 ML BOTTLE OU PRN (21:20)
[2017-09-19] MEDS: traZODone HCL 100 MG TABLET (FP) PO SCH (21:21)
[2017-09-19] MEDS: DOCUSATE SODIUM 100 MG CAPSULE (FP) PO SCH (21:21)
[2017-09-20] MEDS: LEVOTHYROXINE NA 112 MCG TABLET (FP) PO SCH (06:34)
[2017-09-20] MEDS: SERTRALINE HCL 50 MG TABLET (FP) PO SCH (09:55)
[2017-09-20] MEDS: NICOTINE 14 MG/24 HOURS TOPICAL PATCH TD SCH (09:55)
[2017-09-20] MEDS: PRENATAL VITAMINS W/ FOLIC ACID TABLET (FP) PO SCH (09:55)
[2017-09-20] MEDS: IBUPROFEN 400 MG TABLET (FP) PO PRN (09:56)
[2017-09-20] MEDS: traZODone HCL 100 MG TABLET (FP) PO SCH (22:48)
[2017-09-20] MEDS: DOCUSATE SODIUM 100 MG CAPSULE (FP) PO SCH (22:48)
[2017-09-20] MEDS: THIAMINE HCL 100 MG TABLET (FP) PO SCH (22:49)
[2017-09-20] MEDS: hydrOXYzine PAMOATE 50 MG CAPSULE (FP) PO PRN (22:50)
[2017-09-21] MEDS: LEVOTHYROXINE NA 112 MCG TABLET (FP) PO SCH (06:21)
[2017-09-21] MEDS: NICOTINE 14 MG/24 HOURS TOPICAL PATCH TD SCH (10:55)
[2017-09-21] MEDS: PRENATAL VITAMINS W/ FOLIC ACID TABLET (FP) PO SCH (10:55)
[2017-09-21] MEDS: SERTRALINE HCL 50 MG TABLET (FP) PO SCH (10:55)
[2017-09-21] MEDS: hydrOXYzine PAMOATE 50 MG CAPSULE (FP) PO PRN (18:45)
[2017-09-21] MEDS: DOCUSATE SODIUM 100 MG CAPSULE (FP) PO SCH (21:47)
[2017-09-21] MEDS: THIAMINE HCL 100 MG TABLET (FP) PO SCH (21:47)
[2017-09-21] MEDS: traZODone HCL 100 MG TABLET (FP) PO SCH (21:47)
[2017-09-22] MEDS: LEVOTHYROXINE NA 112 MCG TABLET (FP) PO SCH (06:29)
[2017-09-22] MEDS: SERTRALINE HCL 50 MG TABLET (FP) PO SCH (10:20)
[2017-09-22] MEDS: PRENATAL VITAMINS W/ FOLIC ACID TABLET (FP) PO SCH (10:20)
[2017-09-22] MEDS: NICOTINE 14 MG/24 HOURS TOPICAL PATCH TD SCH (10:22)
--- NOTE | 2017-09-22 15:02 | PN ---
Psychiatric Progress Note Vital Signs: Vital Signs Period Temp Pulse Resp BP Sys/Ambrose Pulse Ox Last 24 Hr 98.3 F 78 18-18 108/73 Date of Session: 09/22/17 Chief Complaint:: Medication management HPI: Patient addressing Alcohol and Cocaine Dependence comorbid with Nicotine Dependence and MDD, recurrent episode, moderate Current Medications: Active Medications Generic Name Dose Route Start Last Admin Trade Name Freq PRN Reason Stop Dose Admin Acetaminophen 650 mg 09/10/17 21:00 09/20/17 13:00 Tylenol - PO 650 mg Q4H PRN Administration PAIN Al Hydroxide/Mg Hydroxide 30 ml 09/10/17 21:00 09/21/17 10:25 Mylanta Oral Suspension - PO 30 ml Q6H PRN Administration DYSPEPSIA Bupropion HCl 150 mg 09/11/17 13:36 09/22/17 10:20 Wellbutrin Xl - PO 150 mg DAILY SAYDA Administration Docusate Sodium 300 mg 09/17/17 22:00 09/21/17 21:47 Colace - PO 300 mg HS SAYDA Administration Eucalyptus/Menthol/Phenol/Sorbitol 1 each 09/10/17 21:00 Cepastat Lozenge - MM Q4H PRN SORE THROAT Guaifenesin 10 ml 09/10/17 21:00 Robitussin Dm - PO Q6H PRN COUGH Hydroxyzine Pamoate 50 mg 09/10/17 21:00 09/21/17 18:45 Vistaril - PO 50 mg Q4H PRN Administration AGITATION Ibuprofen 400 mg 09/10/17 21:00 09/20/17 09:56 Motrin - PO 400 mg Q6H PRN Administration SEVERE PAIN Levothyroxine Sodium 112 mcg 09/18/17 07:00 09/22/17 06:29 Synthroid - PO 112 mcg ACBK SAYDA Administration Loperamide HCl 4 mg 09/10/17 21:00 Imodium - PO Q6H PRN DIARRHEA Magnesium Citrate 300 ml 09/10/17 21:00 Citroma - PO Q48H PRN CONSTIPATION Magnesium Hydroxide 30 ml 09/10/17 21:00 09/21/17 13:50 Milk Of Magnesia - PO 30 ml DAILY PRN Administration CONSTIPATION Naphazoline HCl/Pheniramine Maleate 2 drop 09/15/17 13:37 09/19/17 21:20 Visine-A - OU 2 drop QID PRN Administration DRY EYES Nicotine 14 mg 09/10/17 21:00 09/22/17 10:22 Nicoderm Patch - TD Not Given DAILY SAYDA Nicotine Polacrilex 2 mg 09/10/17 21:00 Nicorette Gum - BC Q2H PRN NICOTINE REPLACEMENT RX Multivit/Folic Acid/Iron 1 tab 09/11/17 10:00 09/22/17 10:20 Vitamins (Sjr) - PO 1 tab DAILY SAYDA Administration Pseudoephedrine/Triprolidine 1 combo 09/10/17 21:00 Actifed - PO TID PRN NASAL CONGESTION Sertraline HCl 100 mg 09/11/17 13:36 09/22/17 10:20 Zoloft - PO 100 mg DAILY SAYDA Administration Thiamine HCl 100 mg 09/10/17 22:00 09/21/17 21:47 Vitamin B1 - PO 100 mg HS SAYDA Administration Trazodone HCl 100 mg 09/11/17 22:00 09/21/17 21:47 Desyrel - PO 100 mg HS SAYDA Administration Current Side Effect: No Lab tests ordered: Yes Lab tests reviewed: Yes Provider note:: Patient invited to talk about medication to help her with her craving for alcohol. Different alternatives notably Acamprosate(Campral) and Naltrexone were discussed with patient. She found Acamprosate to be cumbersome having to take 2 big pills three times a day. She opted to take Naltrexone instead. Her LFT's are within normal limits. Benefits vs risks of medication discussed with patient and he agreed to try it Total face to face time:: 25 Mental Status Exam - Mental Status Exam Alert and Oriented to: Time, Place, Person Cognitive Function: Fair Patient Appearance: Well Groomed Mood: Hopeful, Euthymic Affect: Appropriate Patient Behavior: Cooperative Speech Pattern: Clear Voice Loudness: Normal Thought Process: Intact, Goal Oriented Thought Disorder: Not Present Hallucinations: Denies Suicidal Ideation: Denies Homicidal Ideation: Denies Insight/Judgement: Fair Sleep: Fair Appetite: Good Muscle strength/Tone: Normal Gait/Station: Spastic Psychiatric Treatment Plan - Problem List (1) Alcohol dependence Current Visit: Yes (2) Cocaine dependence Current Visit: Yes (3) Nicotine dependence Current Visit: Yes Qualifiers: Nicotine product type: cigarettes Substance use status: uncomplicated Qualified Code(s): F17.210 - Nicotine dependence, cigarettes, uncomplicated; F17.210 - Nicotine dependence, cigarettes, uncomplicated (4) MDD (major depressive disorder), recurrent episode, moderate Current Visit: Yes (5) Graves' disease Current Visit: Yes (6) Hypothyroidism (acquired) Current Visit: Yes (7) Anemia Current Visit: No (8) Cirrhosis of liver Current Visit: No Qualifiers: Hepatic cirrhosis type: alcoholic cirrhosis Ascites presence: without ascites Qualified Code(s): K70.30 - Alcoholic cirrhosis of liver without ascites; K70.30 - Alcoholic cirrhosis of liver without ascites; K70.30 - Alcoholic cirrhosis of liver without ascites Initial treatment plan: 1) Start Naltrexone 50 mg po daily. 2) Monitor progress
--- NOTE | 2017-09-22 15:17 | PN ---
S Progress Note Note: TSH elevatted, was not taking synthroid medication restarted dose increased now c/o hand tremor, will decrease synthroid. abnormal u/a culture neg
[2017-09-22] MEDS: DOCUSATE SODIUM 100 MG CAPSULE (FP) PO SCH (21:47)
[2017-09-22] MEDS: THIAMINE HCL 100 MG TABLET (FP) PO SCH (21:47)
[2017-09-22] MEDS: traZODone HCL 100 MG TABLET (FP) PO SCH (21:47)
[2017-09-22] MEDS: hydrOXYzine PAMOATE 50 MG CAPSULE (FP) PO PRN (21:47)
[2017-09-23] MEDS: IBUPROFEN 400 MG TABLET (FP) PO PRN ×2 (00:09→19:03)
[2017-09-23] MEDS: LEVOTHYROXINE NA 100 MCG TABLET (FP) PO SCH (06:05)
[2017-09-23] MEDS: SERTRALINE HCL 50 MG TABLET (FP) PO SCH (10:38)
[2017-09-23] MEDS: PRENATAL VITAMINS W/ FOLIC ACID TABLET (FP) PO SCH (10:38)
[2017-09-23] MEDS: NALTREXONE HCL 50 MG TABLET PO SCH (10:38)
[2017-09-23] MEDS: NICOTINE 14 MG/24 HOURS TOPICAL PATCH TD SCH (10:40)
[2017-09-23] MEDS: traZODone HCL 100 MG TABLET (FP) PO SCH (21:30)
[2017-09-23] MEDS: DOCUSATE SODIUM 100 MG CAPSULE (FP) PO SCH (21:30)
[2017-09-23] MEDS: THIAMINE HCL 100 MG TABLET (FP) PO SCH (21:30)
[2017-09-23] MEDS: hydrOXYzine PAMOATE 50 MG CAPSULE (FP) PO PRN (21:31)
[2017-09-24] MEDS: LEVOTHYROXINE NA 100 MCG TABLET (FP) PO SCH (06:09)
--- NOTE | 2017-09-24 09:09 | PN ---
Psychiatric Progress Note Vital Signs: Vital Signs Period Temp Pulse Resp BP Sys/Ambrose Pulse Ox Last 24 Hr 97.6 F 66 18-18 114/77 Date of Session: 09/24/17 Chief Complaint:: Discharge Note HPI: Patient addressing Alcohol and Cocaine Dependence comorbid with Nicotine Dependence and MDD, recurrent episode, moderate ROS: Anemia, Cirrhosis of the liver, Graves'disease treated with radioiodine with resultant acquired Hypothyroidism were medically managed Current Medications: Active Medications Generic Name Dose Route Start Last Admin Trade Name Freq PRN Reason Stop Dose Admin Acetaminophen 650 mg 09/10/17 21:00 09/20/17 13:00 Tylenol - PO 650 mg Q4H PRN Administration PAIN Al Hydroxide/Mg Hydroxide 30 ml 09/10/17 21:00 09/21/17 10:25 Mylanta Oral Suspension - PO 30 ml Q6H PRN Administration DYSPEPSIA Bupropion HCl 150 mg 09/11/17 13:36 09/23/17 10:38 Wellbutrin Xl - PO 150 mg DAILY SAYDA Administration Docusate Sodium 300 mg 09/17/17 22:00 09/23/17 21:30 Colace - PO 300 mg HS SAYDA Administration Eucalyptus/Menthol/Phenol/Sorbitol 1 each 09/10/17 21:00 Cepastat Lozenge - MM Q4H PRN SORE THROAT Guaifenesin 10 ml 09/10/17 21:00 Robitussin Dm - PO Q6H PRN COUGH Hydroxyzine Pamoate 50 mg 09/10/17 21:00 09/23/17 21:31 Vistaril - PO 50 mg Q4H PRN Administration AGITATION Ibuprofen 400 mg 09/10/17 21:00 09/23/17 19:03 Motrin - PO 400 mg Q6H PRN Administration SEVERE PAIN Levothyroxine Sodium 100 mcg 09/23/17 07:00 09/24/17 06:09 Synthroid - PO 100 mcg ACBK SAYDA Administration Loperamide HCl 4 mg 09/10/17 21:00 Imodium - PO Q6H PRN DIARRHEA Magnesium Citrate 300 ml 09/10/17 21:00 Citroma - PO Q48H PRN CONSTIPATION Magnesium Hydroxide 30 ml 09/10/17 21:00 09/21/17 13:50 Milk Of Magnesia - PO 30 ml DAILY PRN Administration CONSTIPATION Naltrexone HCl 50 mg 09/23/17 10:00 09/23/17 10:38 Revia - PO 50 mg DAILY SAYDA Administration Naphazoline HCl/Pheniramine Maleate 2 drop 09/15/17 13:37 09/19/17 21:20 Visine-A - OU 2 drop QID PRN Administration DRY EYES Nicotine 14 mg 09/10/17 21:00 09/23/17 10:40 Nicoderm Patch - TD Not Given DAILY SAYDA Nicotine Polacrilex 2 mg 09/10/17 21:00 Nicorette Gum - BC Q2H PRN NICOTINE REPLACEMENT RX Multivit/Folic Acid/Iron 1 tab 09/11/17 10:00 09/23/17 10:38 Vitamins (Sjr) - PO 1 tab DAILY SAYDA Administration Pseudoephedrine/Triprolidine 1 combo 09/10/17 21:00 Actifed - PO TID PRN NASAL CONGESTION Sertraline HCl 100 mg 09/11/17 13:36 09/23/17 10:38 Zoloft - PO 100 mg DAILY SAYDA Administration Thiamine HCl 100 mg 09/10/17 22:00 09/23/17 21:30 Vitamin B1 - PO 100 mg HS SAYDA Administration Trazodone HCl 100 mg 09/11/17 22:00 09/23/17 21:30 Desyrel - PO 100 mg HS SAYDA Administration Current Side Effect: No Lab tests ordered: Yes Lab tests reviewed: Yes Provider note:: Patient will complete this program on 09/25/17. She has met her treatment goals and will continue to address her issues in alf treatment at [facility]. She responded well to Wellbutrin XL 150 mg po daily, Zoloft 100 mg po daily, Trazadone 100 mg po HS and Naltrexone 50 mg po daily. Scripts for 30 days supply of these medications will be electronically transmitted to [facility] pharmacy at [address] [place] [address]. She is stable for discharge on 09/25/17 Total face to face time:: 35 Mental Status Exam - Mental Status Exam Alert and Oriented to: Time, Place, Person Cognitive Function: Fair Patient Appearance: Well Groomed Mood: Hopeful, Euthymic Affect: Appropriate Patient Behavior: Cooperative Speech Pattern: Clear Voice Loudness: Normal Thought Process: Intact, Goal Oriented Thought Disorder: Not Present Hallucinations: Denies Suicidal Ideation: Denies Homicidal Ideation: Denies Insight/Judgement: Fair Sleep: Fair Appetite: Good Muscle strength/Tone: Normal Gait/Station: Normal Psychiatric Treatment Plan - Problem List (1) Alcohol dependence Current Visit: Yes (2) Cocaine dependence Current Visit: Yes (3) Nicotine dependence Current Visit: Yes Qualifiers: Nicotine product type: cigarettes Substance use status: uncomplicated Qualified Code(s): F17.210 - Nicotine dependence, cigarettes, uncomplicated; F17.210 - Nicotine dependence, cigarettes, uncomplicated (4) MDD (major depressive disorder), recurrent episode, moderate Current Visit: Yes (5) Graves' disease Current Visit: Yes (6) Hypothyroidism (acquired) Current Visit: Yes (7) Anemia Current Visit: No (8) Cirrhosis of liver Current Visit: No Qualifiers: Hepatic cirrhosis type: alcoholic cirrhosis Ascites presence: without ascites Qualified Code(s): K70.30 - Alcoholic cirrhosis of liver without ascites; K70.30 - Alcoholic cirrhosis of liver without ascites; K70.30 - Alcoholic cirrhosis of liver without ascites Initial treatment plan: Patient will be discharged tomorrow and referred to [facility] for watermaster treatment
[2017-09-24] MEDS: PRENATAL VITAMINS W/ FOLIC ACID TABLET (FP) PO SCH (10:53)
[2017-09-24] MEDS: NALTREXONE HCL 50 MG TABLET PO SCH (10:53)
[2017-09-24] MEDS: SERTRALINE HCL 50 MG TABLET (FP) PO SCH (10:53)
[2017-09-24] MEDS: NICOTINE 14 MG/24 HOURS TOPICAL PATCH TD SCH (10:54)
[2017-09-24] MEDS: IBUPROFEN 400 MG TABLET (FP) PO PRN ×2 (10:57→21:48)
[2017-09-24] MEDS: DOCUSATE SODIUM 100 MG CAPSULE (FP) PO SCH (21:46)
[2017-09-24] MEDS: traZODone HCL 100 MG TABLET (FP) PO SCH (21:46)
[2017-09-24] MEDS: THIAMINE HCL 100 MG TABLET (FP) PO SCH (21:46)
[2017-09-24] MEDS: hydrOXYzine PAMOATE 50 MG CAPSULE (FP) PO PRN (21:46)
[2017-09-25] MEDS: LEVOTHYROXINE NA 100 MCG TABLET (FP) PO SCH (06:14)
[2017-09-25 07:18] VITALS: BP 121/77; PULSE 71; TEMP 98.4
[2017-09-25] MEDS: NALTREXONE HCL 50 MG TABLET PO SCH (09:35)
[2017-09-25] MEDS: PRENATAL VITAMINS W/ FOLIC ACID TABLET (FP) PO SCH (09:35)
[2017-09-25] MEDS: SERTRALINE HCL 50 MG TABLET (FP) PO SCH (09:35)
[2017-09-25] MEDS: NICOTINE 14 MG/24 HOURS TOPICAL PATCH TD SCH (09:37)
== END 2017-09-25 09:45 | disposition home or self-care (01) | DRG 772 ==
LOC: YASAS 17:10 → Y3W 20:05
PROVIDERS: ADMIT Psychiatry & Neurology Psychiatry; ATTEND Psychiatry & Neurology Psychiatry
PROC: HZ42ZZZ Group Counseling for Substance Abuse Treatment, Cognitive-Behavioral (ICD-10-PCS; principal; 2017-09-10)
DX: F10.20 Alcohol dependence, uncomplicated (principal); F14.20 Cocaine dependence, uncomplicated; F33.2 Major depressive disorder, recurrent severe without psychotic features; F17.210 Nicotine dependence, cigarettes, uncomplicated; E05.00 Thyrotoxicosis with diffuse goiter without thyrotoxic crisis or storm; E03.9 Hypothyroidism, unspecified; D64.9 Anemia, unspecified; K70.30 Alcoholic cirrhosis of liver without ascites; Z59.0 Homelessness
CPT/HCPCS: 36415; 80053; 81003; 81015; 84443; 85027; 86593; 87086; 93005; 93010